=== PATIENT | male | born 1960 | race Asian ===

== ENCOUNTER 2018-01-03 14:56 | Emergency (ER) | payer SELFPAY ==
[2018-01-06] MEDS ORDERED: Norco 5-325 Ta1 EACH PO (04:12)
[2018-01-06] MEDS ORDERED: Flomax0.4 MG PO (04:12)
[2018-01-06] MEDS ORDERED: IBUP600 PO (04:12)
== END 2018-01-03 15:50 | disposition left against medical advice (07) ==
LOC: ER 14:56
DX: Z53.21 Procedure and treatment not carried out due to patient leaving prior to being seen by health care provider (principal)

== ENCOUNTER 2018-01-19 12:14 | Emergency (ER) | payer OTHER ==
[~2018-01-19] VITALS: Ht 162.6 cm; Wt 72.6 kg
[~2018-01-19 12:14] MED LIST: Flomax0.4 MG PO; IBUP600 PO; Norco 5-325 Ta1 EACH PO
[2018-01-19 13:08] LABS: BASOPHILS ABSOLUTE AUTO 0.04 K/mm3 (0.00-0.23); BASOPHILS PERCENT AUTO 0 % (0-2); EOSINOPHILS ABSOLUTE AUTO 0.02 K/mm3 (0.00-0.68); EOSINOPHILS PERCENT AUTO 0 % (0-6); Hematocrit 38.7 % (37.0-53.0); IMMATURE GRAN ABSOLUTE AUTO 0.04 K/mm3 (0.00-0.10); IMMATURE GRAN PERCENT AUTO 0 % (0-1); LYMPHOCYTES ABSOLUTE AUTO 1.41 K/mm3 (0.84-5.20); LYMPHOCYTES PERCENT AUTO 11 % (21-46); MONOCYTES ABSOLUTE AUTO 0.45 K/mm3 (0.16-1.47); MONOCYTES PERCENT AUTO 4 % (4-13); Mean Corpuscular HGB 31.1 pg (26.0-34.0); Mean Corpuscular HGB Conc 33.6 g/dL (31.5-36.5); Mean Corpuscular Volume 93 fL (80-100); Mean Platelet Volume 8.7 fL (9.1-12.4); NEUTROPHILS ABSOLUTE AUTO 10.76 K/mm3 (1.96-9.15); NEUTROPHILS PERCENT AUTO 85 % (41-73); Platelet Count 242 K/mm3 (150-400); RDW Coefficient Variation 13.2 % (11.7-14.2); Red Blood Cell Count 4.18 M/mm3 (4.30-5.90); White Blood Cell Count 12.72 K/mm3 (4.00-11.30)
[2018-01-19 13:28] LABS: Alanine Aminotransfer (ALT/SGP 22 U/L (12-78); Albumin, Blood 3.7 g/dL (3.4-5.0); Alk Phos 77 U/L (50-136); Anion Gap 9 mmol/L (6-16); Aspartate Aminotrans (AST/SGOT 18 U/L (12-37); Bilirubin, Total 0.6 mg/dL (0.1-1.0); Blood Urea Nitrogen 20 mg/dL (8-24); Bun/Creatinine Ratio 21.3 (12.0-20.0); CO2, Blood 23 mmol/L (21-32); Calcium, Blood 8.1 mg/dL (8.5-10.1); Chloride, Blood 108 mmol/L (98-108); Creatinine, Blood 0.94 mg/dL (0.60-1.20); Globulin, Blood 3.7 g/dL (2.2-4.0); Glomerular Filtration Rate >60 (60-); Glucose, Blood 177 mg/dL (70-99); Potassium, Blood 3.4 mmol/L (3.5-5.5); Sodium, Blood 140 mmol/L (136-145); Total Protein, Blood 7.4 g/dL (6.4-8.2)
[2018-01-19 15:07] LABS: Source, Urine Clean Catch
[2018-01-19 15:12] LABS: Bilirubin, Urine Neg (Neg); Blood, Urine 4+ (Neg); Glucose Qualitative, Urine 1+ (Neg); Ketones, Urine Neg (Neg); Leukocyte Esterase, Urine Neg (Neg); Nitrite, Urine Neg (Neg); Protein, Urine Neg (Neg); Urobilinogen, Urine NORM (Normal)
[2018-01-19 15:18] LABS: Color, Urine Yellow (P-Yellow)
[2018-01-19 15:19] LABS: Appearance, Urine Clear (Clear)
[2018-01-19 15:20] LABS: Bacteria Not Seen /hpf; Squamous Epithelial Cells Not Seen /hpf (Few); White Blood Cells, Urine 0-2 /hpf (0-5)
[2018-01-19] MEDS ORDERED: Percocet 10-321 EACH PO (15:27)
[2018-01-19] MEDS ORDERED: Flomax0.4 MG PO (15:27)
== END 2018-01-19 16:00 | disposition home or self-care (01) ==
LOC: ER 12:14
PROVIDERS: Emergency Medicine; Physician Assistant
DX: N13.2 Hydronephrosis with renal and ureteral calculous obstruction (principal); F17.200 Nicotine dependence, unspecified, uncomplicated
CPT/HCPCS: 36415; 74176; 80053; 81001; 83690; 85025; 96374; 96375; 99284-25; J2405; J3010; J7030